=== PATIENT | male | born 1970 | race Caucasian/White ===

== ENCOUNTER 2025-02-11 08:54 | Outpatient (CLI) | payer OTHER, SELFPAY ==
--- OUTSIDE RECORDS SUMMARY | 2025-02-11 09:05 | XMS_ITS | Clinical Summary ---
Author Organization [facility] Ambulatory Address [address] [place] [address] Phone Care Team Providers Care Tax Revenue Officer Name Role Phone Provider, Abstract Unavailable Unavailabl e Sarah Rivers DO Unavailable [phone] 5 [address] [place] Jamison Dominguez MD Unavailable [phone] Sarah Rivers DO Primary Care Provider [phone] [place], Back Office-Leonard Unavailable Corie Alvarez PA-C Unavailable [phone] Provider, Generic External Data Unavailable Unavailable Source Comments This information has been disclosed to you from records protected by federal confidentiality rules (42 CFR part 2). The federal rules prohibit you from making any further disclosure of information inthis record that identifies a patient as having or having had a substance use disorder either directly, by reference to publicly available information, or through verification of such identification by another person unless further disclosure is expressly permitted by the written consent of the individual whose information is being disclosed or as otherwise permitted by 42 CFR part 2. A general authorization for the release of medical or other information is NOT sufficient for this purpose (seesection 2.31). The federal rules restrict any use of the information to investigate or prosecute with regard to a crime any patient with a substance use disorder, except as provided at sections 2.12(c)(5) and 2.65.[facility] Ambulatory Allergies No known active allergies Medications blood glucose test strip 1 strip by miscellaneous route 4 times daily before meals & nightly 100 strip 3 016 Active Additional Information Patient taking differently:1 strip miscellaneous 4 times daily before meals & nightly ,As needed, Reported on 04/18/2022 amLODIPine (NORVASC) 10 mg oral tablet Take 1 tablet by mouth daily 90 tablet 2 Active lisinopriL 20 mg oral tablet Take 1 tablet by mouth 2 times a day 180 tablet 2 Active dulaglutide (TRULICITY) 4.5 mg/0.5 mL subQ subcutaneous injection Inject 0.5 mL into the skin every 7 days 4 mL 5 Active dapagliflozin propanediol (FARXIGA) 5 mg oral tablet Take 1 tablet by mouth every morning 90 tablet 3 Active metFORMIN (GLUCOPHAGE-XR) 500 mg oral extended-releas e tablet Take 2 tablets by mouth twice daily 120 tablet Active rosuvastatin (CRESTOR) 10 mg oral tablet TAKE 1 TABLET BY MOUTH EVERY DAY AT BEDTIME FOR CHOLESTEROL 90 tablet Active metFORMIN (GLUCOPHAGE-XR) 500 mg oral extended-releas e tablet Take 2 tablets by mouth 2 times a day 360 tablet 2 2024 Discontinued rosuvastatin (CRESTOR) 10 mg oral tablet Take 1 tablet by mouth at bedtime 90 tablet 2 024 2024 Discontinued Active Problems Problem Noted Date Diagnosed Date Uncontrolled type 2 diabetes mellitus with hyper glycemia 12/06/2021 Essential hypertension 03/13/2012 Obstructive sleep apnea treated with BiPAP 03/13 Overview (04/05/2012): Wears BiPAP at 17/12. Flexifit Full face mask Hyperlipidemia, unspecified 03/13/2012 Immunizations Immunization Administration Dates Next Due Hepatitis B (20y & Over) 05/14/2017,10/12/2016,0 09/12/2016 Influenza 04/18/2022 Influenza (Flublok) 04/18/2022,07/31/2019 Influenza Quad 0.5mL Preserve Free Syringe 05/14 PPD 05/08/2013 Pneumococcal PCV-20 03/02/2023 Polio Vaccine (IPV) 02/12/2014 SARS-CoV-2 (Moderna) 12/06/2020,11/01/2020 Td 03/15/2005 Tdap 10/12/2023,05/08/2013 Family History Medical History Relation Comments Ca, Prostate Biological Father Hypertension Biological Father Thyroid Disease Biological Mother Ca, Prostate Paternal Grandfather Diabetes Paternal Grandmother Relation Status Comments Biological Father Alive Biological Mother Alive Brother 1 Alive Brother 2 Alive Paternal Grandfather Paternal Grandmother Sister Alive Social History Tobacco Use Types Packs/Day Years Used Date Smoking Tobacco: Former Smokeless Tobacco: Former Snuff Tobacco Cessation:Counseling Given: Yes Comments:1 can of nicotine zyns last about a week Alcohol Use Standard Drinks/Week Comments Yes 0 (1 standard drink = 0.6 oz pur e alcohol) rare Depression Answer Date Recorded PHQ-2 Screening Result Negative PHQ Result Negative 10/12/2023 Sex and Gender Information Value Date Recorded Sex Assigned at Not on file Legal Sex Male 2:27 AM EST Gender Identity Not on file Sexual Orientation Not on file 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 Not on file Not on file Not on file Last Filed Vital Signs Vital Sign Reading Time Taken Comments Blood Pressure 104/74 05/26/2024 10:03 AM EST Pulse 87 05/26/2024 10:03 AM EST Temperature 37.1 C (98.7 F) 05/26/2024 10:03 AM EST Respiratory Rate 18 05/26/2024 10:0 3 AM EST Oxygen Saturation 97% 05/26/2024 10: 03 AM EST Inhaled Oxygen Concentration - - Weight 106.1 kg (233 lb 12.8 oz) 2023 10:53 AM EST Height 180.3 cm (5' 11 ) 03/02/2023 8:31 AM EDT Body Mass Index 32.61 03/02/2023 8:31 AM EDT Plan of Treatment Health Maintenance Due Date Last Done Comments Colonoscopy 1968 Fecal Occult Blood Testing 1968 Sigmoidoscopy 1968 Full Body Skin Exam 05/14/2018 05/14/2017 Shingles Vaccine (Recombinan t) (1 of 2) 2018 Advance Directives 05/14/2022 05/14/2017 Diabetic Retinal Exam 09/02/2022 09/02/2021 , 03/03/2020, 10/26/2018, Additional history exists Cologuard 12/06/2022 12/07/2019, 12/02/2019 Colorectal Cancer Screening 12/06/2022 Diabetic Foot Exam 03/02/2024 03/02/2023, 0 12/06/2021, 10/11/2020, Additional history exists COVID-19 Vaccine (3 - 2023-2 5 season) 2024 12/06/2020, 11/01/2020 Depression Screening 07/16/2024 10/12/2023, 03/02/20 23 HbA1c 11/21/2024 05/24/2024, 02/13, 10/11/2023, Additional history exists Urine Albumin Battery 03/01/2025 03/01/2024 , 03/01/2023, 12/06/2021, Additional history exists Flu Vaccine (#1) 04/15/2025 04/18/2022, 10/2021, 07/31/2019, Additional history exists Creatinine Serum 05/24/2025 05/24/2024, , 10/11/2023, Additional history exists Lipid Profile 05/24/2025 05/24/2024, 02/13, 10/11/2023, Additional history exists Liver Function Test 05/24/2025 05/24/2024, 03/01/2024, 10/11/2023, Additional history exists Potassium 05/24/2025 05/24/2024, 02/13, 10/11/2023, Additional history exists Prostate Discussion 10/11/2025 10/12/2023 DTaP/Tdap/Td Vaccine (3 - Td or Tdap) 10/11/2033 10/12/2023, 05/08/2013, 03/15/2005 Hepatitis B Vaccine Completed 05/14/2017, 10/12/2016, 09/12/2016 Hepatitis C Screen Completed 10/25/2017, 09/09/2016 Pneumococcal Vaccine Completed 03/02/2023 HIV Screening Discontinued Procedures Procedure Name Priority Date/Time Associated Diagnosis Comments COMPREHENSIVE METABOLIC PANEL (CMP) Routine 05/24/2024 8:02 AM EST Uncontrolled type 2 diabetes mellitus with hyperglycemia (HCC) HEMOGLOBIN A1C (HGBA1C) Routine 05/24/2024 8:02 AM EST Uncontrolled type 2 diabetes mellitus with hyperglycemia (HCC) LIPID PANEL Routine 05/24/2024 8:02 AM EST MICROALBUMIN/CREATINI NE WITH RATIO, URINE Routine 03/01/2024 7:25 AM EDT Uncontrolled type 2 diabetes mellitus with hyperglycemia (HCC) FUNDUS PHOTOS - OU - BOTH EYES Routine 09/02/2021 COLOGUARD Routine 12/07/2019 Colon cancer screening ACUTE HEPATITIS PANEL Routine 10/25/2017 6:57 AM EDT Controlled type 2 diabetes mellitus without complication, without long-term current use of insulin (HCC) from Last 3 Months or Most Recently Relevant to Health Maintenance Results * (ABNORMAL) LIPID PANEL (05/24/2024 8:02 AM EST) Cholesterol 118 <200 mg/dL 05/24/2024 9:51 AM EST [facility] Comment: Age >19Y: Desirable <200 mg/dL Borderline High 200-239 mg/dL High >239 mg/dL Age 2-19Y: Acceptable <170 mg/dL Borderline High 170-199 mg/dL High >=200 mg/dL Triglyceride 187(H) <150 mg/dL 05/24/2024 9:51 AM EST [facility] Comment: Age >19Y: Cardiovascular Risk Normal <150 mg/dL Borderline High 150-199 mg/dL High 200-499 mg/dL Very High >499 mg/dL Age 10-19Y: Acceptable <90 mg/dL Borderline High 90-129 mg/dL High >=130 mg/dL Age 0-9Y: Acceptable <75 mg/dL Borderline High 75-99 mg/dL High >=100 mg/dL High Density Lipoprotein(HDL) 39(L) >59 mg/dL 05/24/2024 9:51 AM EST [facility] Comment: Age >19Y: <40 mg/dL: Low HDl-cholesterol concentrations >= 60 mg/dL: Desirable HDL-cholesterol concentrations Age 2-19Y: <40 mg/dL: Low HDL-cholesterol concentrations >= 45 mg/dL: Desirable HDL-cholesterol concentrations Low Density Lipoprotein 42 <131 mg/dL 05/24/2024 9:51 AM EST [facility] Comment: Age >19Y: Optimal <100 mg/dL Near Optimal/Above Optimal 100-129 mg/dL Borderline High 130-159 mg/dL High 160-189 mg/dL Very High >189 mg/dL Age 2-19Y: Acceptable <110 mg/dL Borderline High 110-129 mg/dL High >=130 mg/dL CHOLESTEROL/HDL RATIO 3.00(L) 4.0 - 6.7 05/24/2024 9:51 AM EST [facility] 05/24/2024 8:02 AM EST 05/24/2024 8:03 AM EST us Sarah Get GrullonWalhalla DO LAB BLOOD ORDERABLES Final Resu lt [facility] [address] [address], [place] [phone] * (ABNORMAL) HEMOGLOBIN A1C (HGBA1C) (05/24/2024 8:02 AM EST) HEMOGLOBIN A1C 7.1(H) <5.7 % 05/24/2024 8:59 AM EST [facility] Peripheral Blood 05/24/2024 8:02 AM EST 05/24/2024 8:03 AM EST us Sarah S Silvestre DO LAB BLOOD ORDERABLES Final Resu lt [facility] [address] [facility] [place] [address], [place] [phone] * (ABNORMAL) COMPREHENSIVE METABOLIC PANEL (CMP) (05/24/2024 8:02 AM EST) Sodium(Na) 140 136 - 145 mmol/L 05/24/2024 9:51 AM [facility] Potassium(K) 4.4 3.4 - 5.0 mmol/L 05/24/2024 9:51 AM [facility] Chloride(Cl) 105 98 - 112 mmol/L 05/24/2024 9:51 AM [facility] Carbon Dioxide(CO2) 29 20 - 31 mmol/L 05/24/2024 9:51 AM [facility] ANION GAP 10 6 - 15 mmol/L 05/24/2024 9:51 AM [facility] Glucose 167(H) 70 - 99 mg/dL 05/24/2024 9:51 AM [facility] Comment: The reference interval for Fasting glucose is 70 to 99. The reference interval for Random Glucose is 70 to 139. Urea Nitrogen 16 9 - 23 mg/dL 05/24/2024 9:51 AM [facility] Creatinine 1.17 0.70 - 1.30 mg/dL 05/24/2024 9:51 AM [facility] BUN/CREATININE RATIO 13.7 7.0 - 27.0 05/24/2024 9:51 AM [facility] Total Protein 7.3 5.7 - 8.2 g/dL 05/24/2024 9:51 AM [facility] Alkaline Phosphatase 83 46 - 116 U/L 05/24/2024 9:51 AM [facility] Calcium(Ca) 10.0 8.3 - 10.6 mg/dL 05/24/2024 9:51 AM [facility] Aspartate Aminot.(AST) 22 13 - 40 U/L 05/24/2024 9:51 AM [facility] Alanine Aminotrans(ALT) 38 7 - 40 U/L 05/24/2024 9:51 AM [facility] Albumin 4.3 3.4 - 5.0 g/dL 05/24/2024 9:51 AM [facility] Osmolality 295 278 - 305 mosm/kg 05/24/2024 9:51 AM [facility] Total Bilirubin 0.5 0.0 - 0.8 mg/dL 05/24/2024 9:51 AM EST [facility] eGFR 73 >59 mL/min/1.7 3m2 05/24/2024 9:51 AM EST [facility] Comment: eGFR = 142 X [min(Scr/k,1)]a [max(Scr/k,1)-1.200x0.9938age X 1.012 [if female] Where Scr is serum creatinine; k is 0.7 for females and 0.9 males; a is -0.241 for females and -0.302 for males; min indicates the minimum of Scr/k or 1, max indicates the maximum of Scr/k or 1 Peripheral Blood 05/24/2024 8:02 AM EST 05/24/2024 8:03 AM EST us Sarah S Silvestre DO LAB BLOOD ORDERABLES Final Resu lt Performing Organization Address City/[facility]/ZIP Co de Phone Number [facility] [address] [facility] [place] [address], [place] [phone] * MICROALBUMIN/CREATININE WITH RATIO, URINE (03/01/2024 7:25 AM EDT) RANDOM URINE CREATININE Patient unable to void mg/dL 03/01/2024 12:40 PM EDT [facility] MICROALBUMIN URINE, RANDOM Patient unable to void mg/dL 03/01/2024 12:40 PM EDT [facility] MICROALBUMIN/CRE AT RATIO Patient unable to void 0 - 30 mg/g Creat 03/01/2024 12:40 PM EDT [facility] CLEAN CATCH URINE 03/01/2024 7:25 AM EDT 03/01/2024 12:40 PM EDT us Sarah S Walhalla DO LAB URINE ORDERABLES Final Resu lt [facility] [address] [facility] [address] [address], [place] [phone] * FUNDUS PHOTOS - OU - BOTH EYES (09/02/2021) Anatomical Region Laterality Modality Other 09/02/2021 Historical Provider OPHTH PHOTOGRAPHY Final Resu lt * COLOGUARD (12/07/2019) COLOGUARD RESULT NEGATIVE Stool 12/07/2019 us Sarah S Silvestre DO LABORATORY Final Result * ACUTE HEPATITIS PANEL (10/25/2017 6:57 AM EDT) Anti-HAV Total Non reactive NR 10/26/19 18 1:40 PM EDT [facility] HBcAb Total Non reactive NR 10/25/2017 1:40 PM EDT [facility] Anti-HCV Non reactive NR 10/25/2017 1:40 PM EDT [facility] HBs Antigen Non reactive NR 10/25/2017 1:38 PM EDT [facility] Peripheral Blood 10/25/2017 6:57 AM EDT 10/25/2017 6:59 AM EDT Sarah S Silvestre DO LABORATORY Final Result Performing Organization Address City/State/[facility] Co de Phone Number [facility] [address] [facility] [address], from Last 3 Months or Most Recently Relevant to Health Maintenance Insurance [facility] [place] [id number] [facility] Member Subscriber Plan / Payer (Ef fective 2020-Present) Name:RonFabrizio Relation to Subscriber:Self Name:Fabrizio Velasquez Chloe Payer ID:Not on file Type:[employer] Liability Address: [address] [place] [phone] [facility] Care Teams Tax Revenue Officer Relationship Specialty Start Date End Date Sarah Rivers DO [address] [place] [address] [address] [place] [id number] PCP - General Family Medicine 12/11/13 Provider, Abstract, MD ELIZABETH PROVIDER 03/13/12 Sarah Rivers DO [address] [place] [id number] Family Medicine 04/05/12 Jamison Shore MD [address] [facility] [place] [address] Internal Medicine 04/01/13 [facility] [address] [facility] [place] [address] Family Medicine 02/12/14 Corie Alvarez, PA-C [address] [facility] [address] [place] [address] Orthopaedics 02/14/16 Provider, Generic External Data 10/11/20
--- OUTSIDE RECORDS SUMMARY | 2025-02-11 09:05 | XMS_ITS | Clinical Summary ---
Author Organization [employer] [facility] Address [facility] [place] [address] Care Team Providers Care Excavator Backhoe Operator Name Role Phone SilvestreSarah Primary Care Provider [phone] Social History Tobacco Use Types Packs/Day Years Used Date Smoking Tobacco: Never Assessed Sex and Gender Information Value Date Recorded Sex Assigned at Not on file Legal Sex Male 8:33 AM EDT Gender Identity Not on file Sexual Orientation Not on file Plan of Treatment Health Maintenance Due Date Last Done Comments Cologuard 1968 PSA 1968 Sigmoidoscopy 1968 iFOBT 1968 MMR Vaccines (1 of 1 - Standard series) 1969 DTaP,Tdap,and Td Vaccines (1 - Tdap) 1975 Depression Screening 1980 Colonoscopy 2013 Colorectal Cancer Screening 2013 COVID-19 Vaccine (3 - 4-2 5 season) 2024 12/06/2020, 11/01/2020 Influenza Vaccine (#1) 2025 0, 05/14/2017 HIB Vaccines Aged Out No longer eligi ble based on patient's age to complete this topic HPV Vaccines Aged Out No longer eligi ble based on patient's age to complete this topic Hepatitis A Vaccines Aged Out No long er eligible based on patient's age to complete this topic IPV Vaccines Aged Out No longer eligi ble based on patient's age to complete this topic Pneumococcal Vaccine: [facility] Aged Out No longer eligib le based on patient's age to complete this topic Insurance [employer] PPO Care Teams Excavator Backhoe Operator Relationship Specialty Start Date End Date Sarah Rivers DO [address] [place] [address] [address] [place] [id number] PCP - General Frame Cleaner 02/15/21
--- OUTSIDE RECORDS SUMMARY | 2025-02-11 09:05 | XMS_ITS | Encounter Summary ---
Author Organization [facility] Address [facility] [place] [address] Care Team Providers Care Superintendent Nonselling Name Role Phone Sarah Rivers DO Primary Care Provider [phone] Encounter Details Date Type Department Care Team (Late st Contact Info) Description 02/15/2021 Transcribe Orders [facility] [address] [place] [id number] Sarah Rivers DO [address] [place] [id number] Diabetes mellitus (HCC) (Primary Dx) Social History Tobacco Use Types Packs/Day Years Used Date Smoking Tobacco: Never Assessed Sex and Gender Information Value Date Recorded Sex Assigned at Not on file Legal Sex Male 8:33 AM EDT Gender Identity Not on file Sexual Orientation Not on file documented as of this encounter Plan of Treatment Not on file documented as of this encounter Results * (ABNORMAL) COMPREHENSIVE METABOLIC PANEL (02/15/2021 8:56 AM EDT) Sodium 140 136 - 145 mmol/L 02/15/2021 11:08 AM EDT [facility] Potassium 4.0 3.5 - 5.1 mmol/L 02/15/2021 11:08 AM EDT [facility] Chloride 105 98 - 107 mmol/L 02/15/2021 11:08 AM EDT [facility] CO2 24 22 - 29 mEq/L 02/15/2021 11:08 AM EDT [facility] Anion Gap 11 5 - 14 mmol/L 02/15/2021 11:08 AM EDT [facility] Calcium 9.20 8.50 - 10.30 mg/dL 02/15/2021 11:08 AM EDT [facility] BUN 16 8 - 26 mg/dL 02/15/2021 11:08 AM EDT [facility] Creatinine 1.01 0.70 - 1.30 mg/dL 02/15/2021 11:08 AM EDT [facility] eGFR 78 >60 mL/min 02/15/2021 11:08 AM EDT [facility] Comment: Values below 60 have clinical implications for moderate kidney disease. If kidney function is unstable, result may not be accurate. Multiply by 1.210 if . Albumin 4.3 3.5 - 5.0 g/dL 02/15/2021 11:08 AM EDT [facility] Total Bilirubin 0.5 0.3 - 1.2 mg/dL 02/15/2021 11:08 AM EDT [facility] Alkaline Phosphatase 71 40 - 150 U/L 02/15/2021 11:08 AM EDT [facility] Total Protein 7.2 6.0 - 8.3 g/dL 02/15/2021 11:08 AM EDT [facility] AST 19 5 - 34 U/L 02/15/2021 11:08 AM EDT [facility] ALT (SGPT) 30 <=55 U/L 02/15/2021 11:08 AM EDT [facility] Glucose, Fasting 141(H) 70 - 105 mg/dL 02/15/2021 11:08 AM EDT [facility] Comment:If the patient is no n-fasting the reference range can be extended to 200 mg/dL. Blood Venous blood specimen / Unknown Venipuncture / Unknown 02/15/2021 8:56 AM EDT 02/15/2021 10:07 AM EDT us Sarah Rivers DO LAB BLOOD ORDERABLES Final Resul t [facility] [address] [email or web address] [address], [facility] * (ABNORMAL) LIPID PANEL (02/15/2021 8:56 AM EDT) Cholesterol 146 0 - 200 mg/dL 02/15/2021 11:08 AM EDT [facility] Triglycerides 84 0 - 150 mg/dL 02/15/2021 11:08 AM EDT [facility] HDL 32.0(L) >=55.0 mg/dL 02/15/2021 11:08 AM EDT [facility] LDL Calculated 97 0 - 130 mg/dL 02/15/2021 11:08 AM EDT [facility] Blood Venous blood specimen / Unknown Venipuncture / Unknown 02/15/2021 8:56 AM EDT 02/15/2021 10:07 AM EDT Sarahchristopher Henryl DO LAB BLOOD ORDERABLES Final Resul t Performing Organization Address City/[facility] de Phone Number [facility] [address] [place] [address], [facility] * (ABNORMAL) HEMOGLOBIN A1C (02/15/2021 8:56 AM EDT) Hemoglobin A1C 7.1(H) <=6.0 % 02/15/2021 10:46 AM EDT [facility] ESTIMATED AVERAGE GLUCOSE 157 mg/dL 02/15/2021 10:46 AM EDT [facility] Blood Venous blood specimen / Unknown Venipuncture / Unknown 02/15/2021 8:56 AM EDT 02/15/2021 10:07 AM EDT us Sarah Rivers DO LAB BLOOD ORDERABLES Final Resul t Performing Organization Address [facility] de Phone Number [facility] [address] [place] [address], [facility] * CBC with Auto Differential reflex to Manual Differential, if abnormal (02/15/2021 8:56 AM EDT) WBC 7.00 4.50 - 11.00 10*3/uL 02/15/2021 10:17 AM EDT [facility] RBC 5.23 4.50 - 6.30 10*6/uL 02/15/2021 10:17 AM EDT [facility] Hemoglobin 15.3 14.0 - 18.0 g/dL 02/15/2021 10:17 AM EDT [facility] Hematocrit 46 40 - 54 % 02/15/2021 10:17 AM EDT [facility] MCV 88 82 - 101 fL 02/15/2021 10:17 AM EDT [facility] MCH 29.3 27.0 - 34.0 pg 02/15/2021 10:17 AM EDT [facility] MCHC 33 32 - 36 g/dL 02/15/2021 10:17 AM EDT [facility] RDW 14.1 11.5 - 14.5 % 02/15/2021 10:17 AM EDT [facility] Platelets 217 140 - 440 10*3/uL 02/15/2021 10:17 AM EDT [facility] MPV 8.6 7.4 - 10.4 fL 02/15/2021 10:17 AM EDT [facility] Neutrophils % 64.5 38.0 - 70.0 % 02/15/2021 10:17 AM EDT [facility] Lymphocytes % 22.5 20.0 - 48.0 % 02/15/2021 10:17 AM EDT [facility] Monocytes % 8.1 4.0 - 12.0 % 02/15/2021 10:17 AM EDT [facility] Eosinophils % 4.4 0.0 - 6.0 % 02/15/2021 10:17 AM EDT [facility] Basophils % 0.5 0.0 - 2.0 % 02/15/2021 10:17 AM EDT [facility] Absolute Neutrophils 4.5 1.7 - 8.0 10*3/uL 02/15/2021 10:17 AM EDT [facility] Lymphocytes Absolute 1.6 0.9 - 2.9 10*3/uL 02/15/2021 10:17 AM EDT [facility] Monocytes Absolute 0.6 0.3 - 0.9 10*3/uL 02/15/2021 10:17 AM EDT [facility] Eosinophils Absolute 0.3 0.1 - 0.5 10*3/uL 02/15/2021 10:17 AM EDT [facility] Basophils Absolute 0.0 0.0 - 0.3 10*3/uL 02/15/2021 10:17 AM EDT [facility] Blood Venous blood specimen / Unknown Venipuncture / Unknown 02/15/2021 8:56 AM EDT 02/15/2021 10:07 AM EDT us Sarah Rivers DO LAB BLOOD ORDERABLES Final Resul t [facility] [address] [place], [place] [address] documented in this encounter Visit Diagnoses Diagnosis Diabetes mellitus (HCC)- Primary Type II or unspecified type diabetes mellitus without mention of complication, not stated as uncontrolled documented in this encounter Care Teams Superintendent Nonselling Relationship Specialty Start Date End Date Sarah Rivers DO [address] [place] [address] [address] [place] [phone] PCP - General Report Clerk 02/15/21 documented as of this encounter
--- OUTSIDE RECORDS SUMMARY | 2025-02-11 09:05 | XMS_ITS | Referral Summary ---
Author Organization [facility] Ambulatory Address [address] [place] [address] Phone Care Team Providers Care Quality System Manager Name Role Phone Provider, Abstract Unavailable Unavailabl e Sarah Rivers DO Unavailable [phone] [address] [place] Jamison Dominguez MD Unavailable [phone] Sarah Rivers DO Primary Care Provider [place], [facility] [place] Unavailable Corie Alvarez PA-C Unavailable [phone] Provider, Generic External Data Unavailable Unavailable Source [...] except as provided at sections 2.12(c)(5) and 2.65.[facility] Ambulatory Allergies No known active allergies Medications [...] SARS-CoV-2 (Moderna) 12/06/2020,11/01/2020 Td 03/15/2005 Tdap 10/12/2023,05/08/2013 Social History Tobacco Use Types Packs/Day Years [...] Job Start Date Job End Date [employer]ING [employer] Not on file Not on file Not [...] 03/02/2023 8:31 AM EDT Plan of Treatment Not on file Procedures Procedure Name Priority Date/Time Associated Diagnosis [...] Cholesterol 118 <200 mg/dL 05/24/2024 9:51 AM [facility] Comment: Age >19Y: Desirable <200 mg/dL Borderline High 200-239 mg/dL High >239 mg/dL Age 2-19Y: Acceptable <170 mg/dL Borderline High 170-199 mg/dL High >=200 mg/dL Triglyceride 187(H) <150 mg/dL 05/24/2024 9:51 AM [facility] Comment: Age >19Y: Cardiovascular Risk Normal <150 mg/dL Borderline High 150-199 mg/dL High 200-499 mg/dL Very High >499 mg/dL Age 10-19Y: Acceptable <90 mg/dL Borderline High 90-129 mg/dL High >=130 mg/dL Age 0-9Y: Acceptable <75 mg/dL Borderline High 75-99 mg/dL High >=100 mg/dL High Density Lipoprotein(HDL) 39(L) >59 mg/dL 05/24/2024 9:51 AM [facility] Comment: Age >19Y: <40 mg/dL: Low HDl-cholesterol concentrations >= 60 mg/dL: Desirable HDL-cholesterol concentrations Age 2-19Y: <40 mg/dL: Low HDL-cholesterol concentrations >= 45 mg/dL: Desirable HDL-cholesterol concentrations Low Density Lipoprotein 42 <131 mg/dL 05/24/2024 9:51 AM [facility] Comment: Age >19Y: Optimal <100 mg/dL Near Optimal/Above Optimal 100-129 mg/dL Borderline High 130-159 mg/dL High 160-189 mg/dL Very High >189 mg/dL Age 2-19Y: Acceptable <110 mg/dL Borderline High 110-129 mg/dL High >=130 mg/dL CHOLESTEROL/HDL RATIO 3.00(L) 4.0 - 6.7 05/24/2024 9:51 AM EST [facility] 05/24/2024 8:02 AM EST 05/24/2024 8:03 AM EST Sarah Rivers DO LAB BLOOD ORDERABLES Final Resu lt [facility] [id number] [facility] [address], [place] [phone] * (ABNORMAL) HEMOGLOBIN A1C (HGBA1C) (05/24/2024 8:02 AM EST) HEMOGLOBIN A1C 7.1(H) <5.7 % 05/24/2024 8:59 AM EST [facility] Peripheral Blood 05/24/2024 8:02 AM EST 05/24/2024 8:03 AM EST Sarah Rivers DO LAB BLOOD ORDERABLES Final Resu lt Performing Organization Address City/[facility]/ZIP Co de Phone Number [facility] [id number] [facility] [address], [place] [phone] * (ABNORMAL) COMPREHENSIVE METABOLIC PANEL (CMP) (05/24/2024 8:02 AM EST) Sodium(Na) 140 136 - 145 mmol/L 05/24/2024 9:51 AM EST [facility] Potassium(K) 4.4 3.4 - 5.0 mmol/L 05/24/2024 9:51 AM EST [facility] Chloride(Cl) 105 98 - 112 mmol/L 05/24/2024 9:51 AM EST [facility] Carbon Dioxide(CO2) 29 20 - 31 mmol/L 05/24/2024 9:51 AM [facility] ANION GAP 10 6 - 15 mmol/L 05/24/2024 9:51 AM [facility] Glucose 167(H) 70 - 99 mg/dL 05/24/2024 9:51 AM [facility] Comment: The reference interval for Fasting glucose is 70 to 99. The reference interval for Random Glucose is 70 to 139. Urea Nitrogen 16 9 - 23 mg/dL 05/24/2024 9:51 AM [facility] Creatinine 1.17 0.70 - 1.30 mg/dL 05/24/2024 9:51 AM [facility] BUN/CREATININE RATIO 13.7 7.0 - 27.0 05/24/2024 9:51 AM [facility] Total Protein 7.3 5.7 - 8.2 g/dL 05/24/2024 9:51 AM [facility] Alkaline Phosphatase 83 46 - 116 U/L 05/24/2024 9:51 AM [facility] Calcium(Ca) 10.0 8.3 - 10.6 mg/dL 05/24/2024 9:51 AM [facility] Aspartate Aminot.(AST) 22 13 - 40 U/L 05/24/2024 9:51 AM [facility] Alanine Aminotrans(ALT) 38 7 - 40 U/L 05/24/2024 9:51 AM [facility] Albumin 4.3 3.4 - 5.0 g/dL 05/24/2024 9:51 AM [facility] Osmolality 295 278 - 305 mosm/kg 05/24/2024 9:51 AM [facility] Total Bilirubin 0.5 0.0 - 0.8 mg/dL 05/24/2024 9:51 AM [facility] eGFR 73 >59 mL/min/1.7 3m2 05/24/2024 9:51 AM [facility] Comment: eGFR = 142 X [min(Scr/k,1)]a [max(Scr/k,1)-1.200x0.9938age X 1.012 [if female] Where Scr is serum creatinine; k is 0.7 for females and 0.9 males; a is -0.241 for females and -0.302 for males; min indicates the minimum of Scr/k or 1, max indicates the maximum of Scr/k or 1 Peripheral Blood 05/24/2024 8:02 AM EST 05/24/2024 8:03 AM EST Sarah S Buffalo DO LAB BLOOD ORDERABLES Final Resu lt Performing Organization Address [facility] Co de Phone Number [facility] [address] [facility] [phone], * MICROALBUMIN/CREATININE WITH RATIO, URINE (03/01/2024 7:25 AM EDT) RANDOM URINE CREATININE Patient unable to void mg/dL 03/01/2024 12:40 PM EDT [facility] MICROALBUMIN URINE, RANDOM Patient unable to void mg/dL 03/01/2024 12:40 PM EDT [facility] MICROALBUMIN/CRE AT RATIO Patient unable to void 0 - 30 mg/g Creat 03/01/2024 12:40 PM EDT [facility] CLEAN CATCH URINE 03/01/2024 7:25 AM EDT 03/01/2024 12:40 PM EDT Sarah S Buffalo DO LAB URINE ORDERABLES Final Resu lt Performing Organization Address [facility] Co de Phone Number [facility] [address] [facility] [place] [phone], * FUNDUS PHOTOS - OU - BOTH EYES (09/02/2021) Anatomical Region Laterality Modality Other 09/02/2021 Historical Provider OPHTH PHOTOGRAPHY Final Resu lt * COLOGUARD (12/07/2019) COLOGUARD RESULT NEGATIVE Stool 12/07/2019 us Sarah S Buffalo DO LABORATORY Final Result * ACUTE HEPATITIS PANEL (10/25/2017 6:57 AM EDT) Anti-HAV Total Non reactive NR 10/26/19 18 1:40 PM EDT [facility] HBcAb Total Non reactive NR 10/25/2017 1:40 PM EDT [facility] Anti-HCV Non reactive NR 10/25/2017 1:40 PM EDT [facility] HBs Antigen Non reactive NR 10/25/2017 1:38 PM EDT [facility] Peripheral Blood 10/25/2017 6:57 AM EDT 10/25/2017 6:59 AM EDT us Sarah S Buffalo DO LABORATORY Final Result [facility] [address] [facility] [place] [phone], from Last 3 Months or Most Recently Relevant to Health Maintenance Insurance [facility] [employer] [facility] [employer] [facility] Care Teams Quality System Manager Relationship Specialty Start Date End Date Sarah Rivers DO [address] [place] [id number] PCP - General Family Medicine 12/11/13 Provider, MD Srikanth EPICCELY PROVIDER 03/13/12 Sarah Rivers DO [address] [place] [address] Family Medicine 04/05/12 Jamison Shore MD [address] [place] [address] [place] [address] Internal Medicine 04/01/13 [place], [facility] [address] [facility] [place] [address] Family Medicine 02/12/14 Corie Alvarez, PAYvetteC [address] [facility] [address] [place] [phone] Orthopaedics 02/14/16 Provider, Generic External Data 10/11/20
[2025-02-11 09:47] LABS: Hematocrit 46.2 % (42.0-52.0); Hemoglobin 14.8 g/dL (14.1-18.0); Immature Granulocytes % 0.2 %; Mean Corpuscular HGB Conc 32.0 g/dL (31.8-35.4); Mean Corpuscular Hemoglobin 28.5 pg (27.0-31.2); Mean Corpuscular Volume 89.0 fl (80-94); Nucleated Red Blood Cells % 0 %; Platelet Count 185 K/mm3 (142-424); Red Blood Count 5.19 M/mm3 (4.60-6.20); Red Cell Distribution Width-SD 43.5 fL; White Blood Count 6.6 K/mm3 (4.8-10.8)
[2025-02-11 09:53] LABS: Alanine Aminotransferase 27 U/L (12-78); Albumin Level 4.5 g/dl (3.5-5.0); Albumin/Globulin Ratio 2.0 (1.1-1.8); Alkaline Phosphatase 78 U/L (38-126); Anion Gap 11.5 mEq/L (5-15); Aspartate Amino Transferase 29 U/L (17-59); Bilirubin,Total 0.7 mg/dl (0.2-1.3); Blood Urea Nitrogen 20 mg/dl (9-20); Calcium 9.8 mg/dl (8.4-10.2); Carbon Dioxide 28 mmol/L (22.0-30.0); Chloride 102 mmol/L (98-107); Cholesterol 107 mg/dl (140-200); Creatinine,Serum 0.90 mg/dl (0.66-1.25); Estimated Glomerular Filt Rate 87 ml/min (>60); GFR (African American) 106 ML/MIN (>60); Globulin 2.2 g/dL (1.3-3.2); Glucose 222 mg/dl (74-100); HDL Cholesterol 41 mg/dl (40-60); Potassium 4.5 mmoL/L (3.5-5.1); Sodium 137 mmol/L (136-145); Total Protein,Serum 6.7 g/dl (6.3-8.2); Triglycerides 77 mg/dl (30-150)
[2025-02-11 10:32] LABS: Hemoglobin A1C 9.7 % (4.0-6.0)
== END 2025-02-11 23:59 | disposition home or self-care (01) ==
PROVIDERS: PCP Specialist; Visit Provider Specialist
DX: I10 Essential (primary) hypertension (principal); E78.2 Mixed hyperlipidemia
CPT/HCPCS: 36415; 80053; 80061; 83036; 85025